=== PATIENT | male | born 1945 | race Caucasian/White ===

== ENCOUNTER 2017-04-15 09:03 | Emergency (ER) | payer OTHER, BC ==
[~2017-04-15] VITALS: Ht 180.3 cm; Wt 97.5 kg
[~2017-04-15 09:03] MED LIST: GLC500 PO; GLC850 PO; LISI-461 PO; LPT10 PO
[2017-04-15 09:12] VITALS: TEMP 37; Ht 180.3 cm; Wt 97.5 kg
[2017-04-15] MEDS ORDERED: SODIUM CHLORIDE 0.9% 1000ML 1,000 ML IV STA (09:15)
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
[2017-04-15 09:57] LABS: CALCIUM 8.4 mg/dl (8.5-10.1)
[2017-04-15 09:58] LABS: ALT/SGPT 20 U/L (12-78); AST/SGOT 9 U/L (15-37); BLOOD UREA NITROGEN 13 mg/dl (7-18); BUN/CREATININE RATIO 11.7 (10-20); CARBON DIOXIDE 22 mmol/L (21-32); CHLORIDE 108 mmol/L (98-107); GLUCOSE 190 mg/dl (70-99); SODIUM 141 mmol/L (136-145)
[2017-04-15 10:08] LABS: ALKALINE PHOSPHATASE 70 U/L (45-117); HEMATOCRIT 46.4 % (42-52); MEAN CELL VOLUME 92.6 fL (80-100); MEAN CORPUSCULAR HEMOGLOBIN 31.3 pg (25-34); MEAN CORPUSCULAR HGB CONC 33.8 g/dl (32-36); MEAN PLATELET VOLUME 10.2 fL (7.4-10.4); PLATELET COUNT 222 K/uL (130-400); RED BLOOD COUNT 5.01 M/uL (4.7-6.1); WHITE BLOOD COUNT 6.92 K/uL (4.8-10.8)
--- NOTE | 2017-04-15 10:08 | DIAGNOSTIC IMAGING REPORT ---
CHEST ONE VIEW PORTABLE CLINICAL HISTORY: Atypical chest pain COMPARISON STUDY: 04/01/2015 FINDINGS: The cardiac and mediastinal contours are normal. There is no evidence of focal pulmonary consolidation. There is no evidence of failure. No pleural effusions are visualized.[ IMPRESSION: No active disease in the chest. Electronically signed by: Stephen Bryson M.D. 04/15/2017 10:06 AM Dictated Date/Time: 04/15/2017 10:06 AM
[2017-04-15 10:13] LABS: BASO % 0.3 %; BASO ABS # 0.02 K/uL (0-0.2); COMPLETE YES; EOS % 1.9 %; IG% 0.4 %; LYMPH % 21.5 %; LYMPH ABS # 1.49 K/uL (1.2-3.4); MONO % 8.7 %; NEUT % 67.2 %
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
[2017-04-15 11:40] VITALS: BP 126/81; PULSE 82; O2SAT 96
== END 2017-04-15 11:40 | disposition home or self-care (01) ==
LOC: EDBD 09:03 → C.EDA 09:04
DX: S06.0X9A Concussion with loss of consciousness of unspecified duration, initial encounter (principal); V43.92XA Unspecified car occupant injured in collision with other type car in traffic accident, initial encounter; R42 Dizziness and giddiness; E11.9 Type 2 diabetes mellitus without complications; Z87.828 Personal history of other (healed) physical injury and trauma; Z79.899 Other long term (current) drug therapy; Z88.0 Allergy status to penicillin; Z91.041 Radiographic dye allergy status; Z91.09 Other allergy status, other than to drugs and biological substances; Z83.3 Family history of diabetes mellitus

== ENCOUNTER 2019-06-23 20:19 | Inpatient (IN) ==
--- OUTSIDE RECORDS SUMMARY | 2019-06-23 20:22 | External Medical Summary | Continuity of Care Document ---
:1945 Author Name Dawson Colon Address Unavailable Unavailable , Care Team Providers Name Role Phone Unavailable Unavailable Unavailable JOSUE, R Unavailable Unavailable Unavailable Unavailable Unavailable Problems Diabetes (250.00) (E11.9) Hypertension (401.9) (I10) Cough (786.2) (R05) COPD (chronic obstructive pulmonary disease) (496) (J44.9) Mucopurulent chronic bronchitis (491.1) (J41.1) Chronic sinusitis (473.9) (J32.9) Allergies and Adverse Reactions Iodinated Contrast Media (Allergy) Penicillins (Allergy) Medications metFORMIN HCl - 1000 MG Oral Tablet; TAKE 1 TABLET DAILY WIT H Darlene NESBITT Refills: 0 Procedures History of Knee Arthroscopy With Medial Meniscus Repair Status: Completed Immunizations Immunizations not documented Family History Mother Family history of Radiation Status: Active Social History - Smoking Status Former smoker Plan of Treatment Planned Observations Planned Goals not documented Results No Known Results Results not documented
[2019-06-23] MEDS ORDERED: ALBUTEROL 0.083% NEBU SOLN 3 ML VIAL NEB STA (20:53)
[2019-06-23 21:16] LABS: Hematocrit (blood only) 43.2 % (42-52); Hemoglobin 14.8 g/dL (14.0-18.0); Mean Corpuscular Hgb Conc 34.3 g/dL (32-36); Mean Corpuscular Volume 92.1 fL (80-100); RDW Coefficient of Variation 13.6 % (11.5-14.5); RDW Standard Deviation 45.7 fL (36.4-46.3); Red Blood Count 4.69 M/uL (4.7-6.1); White Blood Count 7.96 K/uL (4.8-10.8)
[2019-06-23] MEDS ORDERED: SODIUM CHLORIDE 0.9% 1000ML 500 ML IV ONE (21:37)
[2019-06-23] MEDS ORDERED: HYDROmorphone INJ 0.5 MG/0.5 ML SYR IV PRN (21:37)
[2019-06-23] MEDS ORDERED: ONDANSETRON INJ 2 MG/ML 2 ML VIAL IV STA (21:37)
[2019-06-23] MEDS ORDERED: KETOROLAC TROMETHAMINE 15 MG/ML VIAL IV STA (21:37)
[2019-06-23 21:46] LABS: Alanine Aminotransferase 17 U/L (12-78); Albumin Globulin Ratio 0.9 (0.9-2); Albumin Level 3.6 gm/dl (3.4-5.0); Alkaline Phosphatase 102 U/L (45-117); Aspartate Aminotransferase 19 U/L (15-37); BUN Creatinine Ratio 8.2 (10-20); Bilirubin,Total 0.2 mg/dl (0.2-1); Blood Urea Nitrogen 11 mg/dl (7-18); Calcium 8.5 mg/dl (8.5-10.1); Carbon Dioxide 24 mmol/L (21-32); Chloride 109 mmol/L (98-107); Creatine Kinase 125 U/L (39-308); Creatine Kinase MB 1.4 ng/ml (0.5-3.6); Creatinine Clr Calc Pharmacy 51.6 ml/min; Est GFR (African American) 57.7; Est GFR (Non-African American) 49.7; Globulin 3.8 gm/dl (2.5-4.0); Glucose 152 mg/dl (70-99); Sodium 141 mmol/L (136-145); Total Protein 7.4 gm/dl (6.4-8.2); Troponin I < 0.015 ng/ml (0-0.045)
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
[2019-06-23 22:25] LABS: Mean Platelet Volume 12.4 fL (7.4-10.4)
[2019-06-23 22:27] LABS: Basophils # (auto) 0.02 K/uL (0-0.2); Basophils % (auto) 0.3 %; Eosinophils # (auto) 0.14 K/uL (0-0.5); Eosinophils % (auto) 1.8 %; Immature Granulocytes # (auto) 0.03 K/uL (0.00-0.02); Immature Granulocytes % (auto) 0.4 %; Lymphocytes # (auto) 2.15 K/uL (1.2-3.4); Monocytes # (auto) 0.82 K/uL (0.11-0.59); Monocytes % (auto) 10.3 %; Neutrophils % (auto) 60.2 %; Platelet Estimate Decreased (Normal)
[2019-06-23 23:04] LABS: Free PSA % 20.2 %
[2019-06-24] MEDS ORDERED: HYDROmorphone INJ 0.5 MG/0.5 ML SYR IV PRN (01:45)
[2019-06-24] MEDS ORDERED: ONDANSETRON INJ 2 MG/ML 2 ML VIAL IV PRN (01:45)
[2019-06-24] MEDS ORDERED: ACETAMINOPHEN 325 MG TAB PO PRN (01:45)
[2019-06-24] MEDS ORDERED: HYDROCORTISONE 2.5% CR 30 GM TUBE EXT PRN (01:45)
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
[2019-06-24] MEDS ORDERED: GLUCOSE 40% GEL 15 GM TUBE PO PRN (03:00)
[2019-06-24] MEDS ORDERED: GLUCOSE 10 TABS/TUBE PO PRN (03:00)
[2019-06-24] MEDS ORDERED: DEXTROSE 50% 50 ML SYRINGE IV PRN (03:00)
[2019-06-24] MEDS ORDERED: CARBOHYDRATES FOR HYPOGLYCEMIA PO PRN (03:00)
[2019-06-24] MEDS ORDERED: GLUCAGON FOR INJ 1 MG VIAL IM PRN (03:00)
--- NOTE | 2019-06-24 03:04 | Emergency Department Note ---
Entered by Brittany Montague acting as a scribe for History of Present Illness General Chief complaint: Chest Pain Stated complaint: CHEST PAIN Time Seen by Provider: 06/23/19 20:34 Source: patient Mode of arrival: ambulatory Limitations: no limitations History of Present Illness Onset (ago): day(s) 10 Location: chest (Left chest) Radiation: back Pain Consistency: + constant Maximum Pain Intensity: 9 Current Pain Intensity: 9 Relieved By: + none Exacerbated By: + other (Laying down, coughing) Associated symptoms: no rash Treatments prior to arrival: none The patient is a 74 year old male who presents to the ED with complaints of chest pain for the past 10 days. He rates his pain as a 9/10 in severity. He states the pain radiates from his left chest to his mid back. Laying down and coughing worsen his pain. He states he has also experienced numbness in his chest. He notes he has never experienced similar symptoms in the past. He denies any recent rashes. He denies any injuries or trauma to the area. The patient did smoke several years ago, but states he quit approximately 20 years ago. He admits he does a lot of hiking outdoors but states he never experienced the pain with exertion before. He denies noticing any recent tick bites. Home Medications Home Medications Medication Instructions Recorded Confirmed Type aspirin [Aspir-Low] 81 mg PO DAILY 06/23/19 06/23/19 History baclofen 10 mg PO TID 06/23/19 06/23/19 History duloxetine [Cymbalta] 30 mg PO DAILY 06/23/19 06/23/19 History empagliflozin [Jardiance] 10 mg PO DAILY 06/23/19 06/23/19 History glucosamine-chondroitin 1 tab PO BID 06/23/19 06/23/19 History hydrocortisone 1 applic TOPICAL BID PRN 06/23/19 06/23/19 History metformin [Glucophage XR] 500 mg PO TID 06/23/19 06/23/19 History pantoprazole [Protonix] 40 mg PO DAILY 06/23/19 06/23/19 History pioglitazone [Actos] 15 mg PO DAILY 06/23/19 06/23/19 History ranitidine HCl [Zantac] 300 mg PO HS 06/23/19 06/23/19 History rosuvastatin [Crestor] 20 mg PO DAILY 06/23/19 06/23/19 History Allergies Allergy/AdvReac Type Severity Reaction Status Date / Time cat dander Allergy Intermediate ITCHING , Unverified 06/23/19 22:53 SNEEZING Iodinated Contrast- Oral and Allergy Unknown Unknown Verified 06/23/19 22:53 IV Dye Penicillins Allergy Unknown Unknown Verified 06/23/19 22:53 Past Med/Surg History Medical History DVT (deep venous thrombosis) Bipolar depression Diabetes Social History Preferred Language: Chadian Communication Ability: Effective Medical Physiologist Required: No Beliefs That Will Affect Care: None Current Living Situation: Alone Other Information That Helps Us Care for You: No Feels Safe at Home: Yes Smoking Status: Former smoker Do You Dip or Chew Tobacco: No ; Second Hand Exposure: No ; Tobacco Cessation Education Requested by Patient: No Hx Substance Use: No Review of Systems See HPI for pertinent positives & negatives. and A total of 10 systems reviewed and were otherwise negative Physical Exam Vital Signs Vital Signs - 24 hr 06/23/19 20:25 06/23/19 20:37 06/23/19 20:38 Temperature 36.9 C Temperature Source Oral Sepsis Recent Fever Within 48 Hours No Sepsis New/Unexplained Change in Mental Status No Sepsis Action Taken by Nursing No Action Required Pulse Rate 99 H 93 H Pulse Rate [Bilateral Apical] 88 Pulse Rate [Right Finger] Pulse Rhythm Regular Respiratory Rate 20 20 20 Respiratory Effort / Characteristics Non-Labored Respiratory Depth Normal Blood Pressure 160/82 H Blood Pressure [Left Arm] 124/88 Blood Pressure Mean 108 Blood Pressure Mean [Left Arm] 100 Pulse Oximetry 97 98 98 Oxygen Delivery Method Room Air Room Air Room Air 06/23/19 21:01 06/23/19 21:10 06/23/19 21:27 Temperature Temperature Source Sepsis Recent Fever Within 48 Hours Sepsis New/Unexplained Change in Mental Status Sepsis Action Taken by Nursing Pulse Rate Pulse Rate [Bilateral Apical] 90 Pulse Rate [Right Finger] 93 H Pulse Rhythm Respiratory Rate 18 18 Respiratory Effort / Characteristics Non-Labored Spontaneous Respiratory Depth Blood Pressure Blood Pressure [Left Arm] 149/94 H Blood Pressure Mean Blood Pressure Mean [Left Arm] 112 Pulse Oximetry 98 98 94 Oxygen Delivery Method Room Air Room Air Room Air 06/23/19 21:49 06/23/19 22:03 06/23/19 23:00 Temperature Temperature Source Sepsis Recent Fever Within 48 Hours Sepsis New/Unexplained Change in Mental Status Sepsis Action Taken by Nursing Pulse Rate Pulse Rate [Bilateral Apical] 93 H 88 94 H Pulse Rate [Right Finger] Pulse Rhythm Respiratory Rate 20 18 20 Respiratory Effort / Characteristics Respiratory Depth Blood Pressure Blood Pressure [Left Arm] 144/92 H 145/85 H 116/78 Blood Pressure Mean Blood Pressure Mean [Left Arm] 109 105 90 Pulse Oximetry 95 96 93 Oxygen Delivery Method Room Air Room Air Room Air 06/24/19 00:00 Temperature Temperature Source Sepsis Recent Fever Within 48 Hours Sepsis New/Unexplained Change in Mental Status Sepsis Action Taken by Nursing Pulse Rate Pulse Rate [Bilateral Apical] 78 Pulse Rate [Right Finger] Pulse Rhythm Respiratory Rate 20 Respiratory Effort / Characteristics Respiratory Depth Blood Pressure Blood Pressure [Left Arm] 125/90 Blood Pressure Mean Blood Pressure Mean [Left Arm] 101 Pulse Oximetry 94 Oxygen Delivery Method Room Air GENERAL: Awake, alert, well-appearing, in no acute distress HENT: Normocephalic, atraumatic. Oropharynx unremarkable. EYES: Normal conjunctiva. Sclera non-icteric. NECK: Supple. No nuchal rigidity. FROM. No JVD. RESPIRATORY: Clear to auscultation. CARDIAC: Regular rate, normal rhythm. Extremities warm and well perfused. Pulses equal. CHEST: Patient is point tender to the left 5th rib, area inferior to the scapula. ABDOMEN: Soft, non-distended. No tenderness to palpation. No rebound or guarding. No masses. RECTAL: Deferred. MUSCULOSKELETAL: Chest examination reveals no tenderness. The back is symmetrical on inspection without obvious abnormality. There is no CVA tenderness to palpation. No joint edema. LOWER EXTREMITIES: Calves are equal size bilaterally and non-tender. No edema. No discoloration. NEURO: Normal sensorium. No sensory or motor deficits noted. SKIN: No rash or jaundice noted. Course 2038: The patient was evaluated in room A9 and a complete history and physical were performed. 2234: I reevaluated the patient. He is resting comfortably. I discussed his results and my recommendation he remain in the hospital for further evaluation and management and he verbalized complete understanding and agreement with the plan. He is also requesting that I call his son who is a chiropractor. 2244: I spoke with the patients son. I informed him of the patients work up results and the plan to remain in the hospital. He is agreeable with the plan. 2310: I discussed the patients case [facility]. The patient will be further evaluated. Consultations Consultation #1: I discussed the patients case with [facility]. The patient will be further evaluated. Time: 23:10 Administered Medications Discontinued Medications Albuterol (Ventolin 0.083% 2.5mg/3ml) 2.5 mg NEB NOW STA Stop: 06/23/19 20:54 Last Admin: 06/23/19 21:08 Dose: 2.5 mg Documented by: [id number] Hydromorphone HCl (Dilaudid) 0.5 mg IV Q15M PRN PRN Reason: Pain Stop: 07/07/19 21:36 Last Admin: 06/23/19 21:44 Dose: 0.5 mg Documented by: [id number] Sodium Chloride (Nss 1000ml) 500 mls @ 999 mls/hr IV .Q31M ONE Stop: 06/23/19 22:07 Last Infusion: 06/23/19 22:11 Dose: 0 mls/hr Documented by: [id number] Admin: 06/23/19 21:43 Dose: 999 mls/hr Documented by: [id number] Ketorolac Tromethamine (Toradol) 15 mg IV NOW STA Stop: 06/23/19 21:38 Last Admin: 06/23/19 21:44 Dose: 15 mg Documented by: [id number] Ondansetron HCl (Zofran) 4 mg IV NOW STA Stop: 06/23/19 21:38 Last Admin: 06/23/19 21:44 Dose: 4 mg Documented by: [id number] Medical Decision Making Differential Diagnosis Differential diagnoses includes but is not limited to acute coronary syndrome, myocardial infarction, pericarditis, pulmonary embolus, aortic dissection, pneumonia, pneumothorax, musculoskeletal, shingles, esophageal. Medical Records Attestation: I reviewed the patient's medical records. Home Medications Current Medication List: was personally reviewed by me Laboratory Data Attestation: I reviewed the patient's lab results. Result diagrams: 06/23/19 20:40 06/23/19 20:40 Lab Results 06/23/19 06/23/19 06/23/19 Range/Units 20:40 20:40 20:40 WBC 7.96 (4.8-10.8) K/uL RBC 4.69 L (4.7-6.1) M/uL Hgb 14.8 (14.0-18.0) g/dL Hct 43.2 (42-52) % MCV 92.1 (80-100) fL MCH 31.6 (25-34) pg MCHC 34.3 (32-36) g/dL RDW Std Deviation 45.7 (36.4-46.3) fL RDW Coeff of Brooke 13.6 (11.5-14.5) % Plt Count (130-400) K/uL MPV 12.4 H (7.4-10.4) fL Immature Gran % (Auto) 0.4 % Neut % (Auto) 60.2 % Lymph % (Auto) 27.0 % [place] % (Auto) 10.3 % Eos % (Auto) 1.8 % Baso % (Auto) 0.3 % Immature Gran # (Auto) 0.03 H (0.00-0.02) K/uL Neut # (Auto) 4.80 (1.4-6.5) K/uL Lymph # (Auto) 2.15 (1.2-3.4) K/uL [place] # (Auto) 0.82 H (0.11-0.59) K/uL Eos # (Auto) 0.14 (0-0.5) K/uL Baso # (Auto) 0.02 (0-0.2) K/uL Platelet Estimate Decreased L (Normal) Sodium 141 (136-145) mmol/L Potassium 4.0 (3.5-5.1) mmol/L Chloride 109 H (98-107) mmol/L Carbon Dioxide 24 (21-32) mmol/L Anion Gap 8.0 (3-11) BUN 11 (7-18) mg/dl Creatinine 1.37 (0.6-1.4) mg/dl Est Cr Clr Drug Dosing 51.6 ml/min Est GFR ( Amer) 57.7 Est GFR (Non-Af Amer) 49.7 BUN/Creatinine Ratio 8.2 L (10-20) Glucose 152 H (70-99) mg/dl Calcium 8.5 (8.5-10.1) mg/dl Total Bilirubin 0.2 (0.2-1) mg/dl AST 19 (15-37) U/L ALT 17 (12-78) U/L Alkaline Phosphatase 102 (45-117) U/L Total Creatine Kinase 125 (39-308) U/L CK-MB (CK-2) 1.4 (0.5-3.6) ng/ml CK/CKMB % Calc 1.1 (0-3.0) Troponin I < 0.015 (0-0.045) ng/ml Total Protein 7.4 (6.4-8.2) gm/dl Albumin 3.6 (3.4-5.0) gm/dl Globulin 3.8 (2.5-4.0) gm/dl Albumin/Globulin Ratio 0.9 (0.9-2) Lipase 153 (73-393) U/L Prostate Specific Ag 31.900 H Cancelled (0-4) ng/ml Free PSA 6.45 Cancelled ng/ml % Free PSA 20.2 Cancelled % Specimen Hemolysis Imaging Data Radiologist's Impression: Radiology results as stated below per my review and the radiologist's interpretation: CT SCAN OF THE CHEST WITHOUT IV CONTRAST; CT SCAN OF THE THORACIC SPINE WITHOUT IV CONTRAST CLINICAL HISTORY: Left-sided chest wall pain. Thoracic back pain. COMPARISON STUDY: Chest x-ray dated 04/15/2017. Chest CT dated 03/29/2015. TECHNIQUE: CT scan of the thorax was performed from the thoracic inlet to the upper abdomen. Additionally, CT scan of the thoracic spine is performed from the lower cervical spine to the upper lumbar spine. Images for both examinations are reviewed in the axial, sagittal, and coronal planes. IV contrast was not administered for this examination as per the referring clinician. A dose lowering technique was utilized adhering to the principles of ALARA. CT DOSE: 603.57 mGy.cm FINDINGS: Thyroid: Imaged portions of the thyroid gland are mildly enlarged and heterogeneous in attenuation. Thoracic aorta: The thoracic aorta is normal in caliber and demonstrates standard 3-vessel arch anatomy. Heart: The heart is mildly enlarged and without pericardial effusion. There is lipomatous hypertrophy of the interatrial septum. There are coronary artery calcifications. Lungs and pleural spaces: Emphysematous change is noted. There is no airspace consolidation or pleural effusion. The trachea and central airways are clear. There are numerous (greater than 10) pulmonary and pleural-based nodules scattered throughout both lungs. The largest at the left lung base on image #23 and measures 8 mm. These are nonspecific, and image arteries are present in 2015. Mediastinum: There is no mediastinal lymphadenopathy. Kimberly: Not well assessed without IV contrast. Axillae: There is no axillary lymphadenopathy. Upper abdomen: There is a tiny hiatal hernia. Diverticula are noted in the partially imaged colon. Bony thorax: See below for dedicated assessment of the thoracic spine. The skeletal structures are osteopenic. 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 Large lesions are identified in the thoracic spine (see below). A large lesion is also identified within the left lateral 3rd rib with mild surrounding inflammation. Smaller lesions are seen within the left 5th and 6th ribs, the right 6th, 9th, and 10th ribs, the left clavicle, and the left scapula. THORACIC SPINE: There is a large sclerotic lesion which largely replaces the body of T2. This also involves the pedicles and posterior elements. Smaller lesion is seen within the bodies of T1, as well as the body and right pedicle of L1. There is no evidence of fracture or malalignment. Vertebral body height and alignment are maintained throughout the thoracic spine. Anterior osteophytes are seen throughout. The transverse and spinous processes are intact. The disc spaces are preserved. There is no evidence of large disc herniation or high- grade central canal stenosis by CT. The paraspinous soft tissues are normal in appearance. IMPRESSION: 1. Cardiomegaly and emphysema. 2. There is no airspace consolidation or pleural effusion. 3. There is no evidence of fracture or malalignment involving the thoracic spine. 4. 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 Given the patient's age and gender prostate cancer is a top consideration. Correlation with the patient's medical/oncological history will be required. 5. A large lesion involving the left 3rd rib with surrounding inflammation may be related to the patient's history of left-sided chest wall pain. 6. A large osteoblastic lesion largely replaces the T2 vertebral body. 7. There are numerous (greater than 10) subcentimeter pulmonary pleural-based nodules. These are pathologically indeterminant, and the majority have been p resent dating back to 2014. 8. See above for detailed findings. Electronically signed by: Don Riley M.D. 06/23/2019 10:22 PM ECG Data Attestation: I personally reviewed and interpreted this ECG as follows: Indication: chest pain Rate (beats per minute): 91 Rhythm: normal sinus Findings: no ST depression and no ST elevation Blood Pressure Blood Pressure Findings: Elevated blood pressure Blood Pressure Disposition: further management by hospitalist ASMITA Aragon This is a 74-year-old male who presents emergency department complaining of referred pain that wraps around to his left arm from his spine. Based on this physical exam finding the patient was sent for CAT scan of the spine as well as his chest. This is concerning for lytic lesions to the patient's spine and his rib. The patient was also given Dilaudid here in the emergency department. Repeat examination revealed improvement in the patient's symptoms. Due to the nature of the finding on the CAT scan I did discuss the case with the hospitalist service who agreed to admit the patient. This patient's son was also updated with findings and is in agreement with the treatment plan. Impression & Plan Chest pain, Fracture of rib, Lesion of vertebra Discharge Plan Visit Data *Final* Discharge Date/Time: 06/24/19 01:33 Chief Complaint: Chest Pain Stated Complaint: CHEST PAIN ED Provider: Alban Dave Discharge Problem: Chest pain, Fracture of rib, Lesion of vertebra Patient Disposition: Admitted As Inpatient Discharge Instructions Interventions: ED Discharge Assessment Last Done: 06/24/19 01:33 Discharge Problem: Chest pain Qualifiers: Chest pain type: unspecified Qualified Code(s): R07.9 - Chest pain, unspecified Fracture of rib Qualifiers: Encounter type: initial encounter Rib fracture type: single rib Fracture type: closed Laterality: left Qualified Code(s): S22.32XA - Fracture of one rib, left side, initial encounter for closed fracture The scribe's documentation has been prepared under my direction and personally reviewed by me in its entirety. I confirm that the note above accurately reflects all work, treatment, procedures, and medical decision making performed by me.
[2019-06-24 03:56] LABS: iSTAT Creatinine 1.2 mg/dl (0.6-1.3); iSTAT Hemoglobin 14.6 g/dl (14.0-18.0); iSTAT Ionized Calcium 1.18 mmol/l (1.12-1.32)
--- NOTE | 2019-06-24 06:57 | CT Scan Report ---
CT head/brain wo con CLINICAL HISTORY: Metastatic disease. Evaluate for intracranial metastasis. COMPARISON STUDY: 04/15/2017 TECHNIQUE: Axial CT of the brain is performed from the vertex to the skull base. IV contrast was not administered for this examination. A dose lowering technique was utilized adhering to the principles of ALARA. CT DOSE: 651.12 mGy.cm FINDINGS: No intra or extra-axial mass lesions are visualized. There is no CT evidence of acute cortical infarc tion. There is no evidence of midline shift. There is no acute hemorrhage. No calvarial fractures ar e visualized. There are patchy white matter hypodensities likely on a small vessel basis. There is no evidence of pathologic ventricular dilatation. There is no evidence of acute sinusitis IMPRESSION: No acute intracranial findings Electronically signed by: Stephen Bryson M.D. 06/24/2019 6:56 AM
--- NOTE | 2019-06-24 06:58 | CT Scan Report ---
CT abd pelvis wo con CT DOSE: 657.82 mGy.cm HISTORY: Metastatic disease. metastatic disease TECHNIQUE: Multiaxial CT images of the abdomen and pelvis were performed without contrast. A dose lo wering technique was utilized adhering to the principles of ALARA. COMPARISON STUDY: None. FINDINGS: Lung bases are clear. 4 mm pleural-based nodule left base laterally image 11. Liver spleen and pancreas are unremarkable. Kidneys are negative for hydronephrosis. No significant periaortic or josse pathology. Nonobstructive bowel pattern. Scattered chronic colonic diverticuli. No evidence for acute diverticulitis. Small right and to a lesser extent left fat-containing nonobstructive inguinal hernias. No evidence for bowel containment. Survey evaluation of the bony structures shows no lytic or blastic process. Incidental note is made of moderate prostate enlargement IMPRESSION: No significant abnormality identified within the abdomen or pelvis. Moderate prostate enlargement. No evidence for metastatic disease. The above report was generated using voice recognition software. It may contain grammatical, syntax or spelling errors. Electronically signed by: Freddy Bosch M.D. 06/24/2019 6:56 AM
[2019-06-24 07:23] LABS: Basophils # (auto) 0.02 K/uL (0-0.2); Basophils % (auto) 0.3 %; Eosinophils # (auto) 0.12 K/uL (0-0.5); Hematocrit (blood only) 41.2 % (42-52); Hemoglobin 13.6 g/dL (14.0-18.0); Immature Granulocytes # (auto) 0.02 K/uL (0.00-0.02); Immature Granulocytes % (auto) 0.3 %; Lymphocytes # (auto) 1.76 K/uL (1.2-3.4); Lymphocytes % (auto) 29.3 %; Mean Corpuscular Volume 92.6 fL (80-100); Mean Platelet Volume 11.5 fL (7.4-10.4); Monocytes # (auto) 0.53 K/uL (0.11-0.59); Monocytes % (auto) 8.8 %; Neutrophils # (auto) 3.55 K/uL (1.4-6.5); Neutrophils % (auto) 59.3 %; Platelet Count 119 K/uL (130-400); RDW Coefficient of Variation 13.6 % (11.5-14.5); RDW Standard Deviation 46.4 fL (36.4-46.3); Red Blood Count 4.45 M/uL (4.7-6.1)
[2019-06-24 07:41] LABS: Estimated Average Glucose 171 mg/dl; Hemoglobin A1C 7.6 % (4.5-5.6)
[2019-06-24 07:58] LABS: BUN Creatinine Ratio 9.1 (10-20); Calcium 8.3 mg/dl (8.5-10.1); Creatinine Clr Calc Pharmacy 62.3 ml/min; Est GFR (Non-African American) 62.1; Magnesium 2.3 mg/dl (1.8-2.4)
[2019-06-24 08:03] LABS: Prostate Specific Antigen 28.4 ng/ml (0-4)
[2019-06-24] MEDS ORDERED: INSULIN GLARGINE SOLOSTAR 100 UNITS/ML 3 ML PEN SC SCH (09:00)
[2019-06-24] MEDS ORDERED: NON-FORMULARY MEDICATION (Glucosamine-Chondroitin 1 TAB) PO SCH (09:00)
[2019-06-24] MEDS: PANTOprazole 40 MG TAB PO SCH (09:08)
[2019-06-24] MEDS: ROSUVASTATIN CALCIUM 20 MG TAB PO SCH (09:08)
[2019-06-24] MEDS: ASPIRIN 81 MG ECTAB PO SCH (09:08)
[2019-06-24] MEDS: DULOXETINE HCL 30 MG CAP PO SCH (09:09)
[2019-06-24] MEDS: BACLOFEN 10 MG TAB PO SCH ×3 (09:11→21:45)
[2019-06-24] MEDS: OXYCODONE/ACETAMINOPHEN 5mg/325mg TAB PO PRN ×4 (09:26→23:37)
[2019-06-24] MEDS: INSULIN ASPART 100 UNITS/ML 3 ML PEN SC SCH ×4 (10:26→22:24)
--- NOTE | 2019-06-24 12:32 | Urology Consultation ---
Date of Consultation June 24, 2019 Assessment & Plan (1) Elevated PSA, greater than or equal to 20 ng/ml: (2) Lesion of vertebra: 74yo M with elevated PSA, with concern for metastatic osteoblastic lesions of vertebrae Pt unable to tolerate KAMALJIT due to internal hemorrhoids and increased rectal tone. Pt is otherwise doing well, symptoms managed at this time. Discussed androgen deprivation therapy, he would like to hold off for now. We will consult medical oncology to assist in management. Plan for prostate biopsy under sedation tomorrow with Dr. Hill due to his intolerability of KAMALJIT. Risks and benefits reviewed, pt agreeable to proceed. Start antibiotics preprocedure now (cipro ~24 hours prior to procedure, q12h prior to procedure x5 days total) Plan for bowel cleanse tonight with mag citrate then fleets enema in AM. NPO at midnight. History of Present Illness Reason for Consultation: elevated PSA Requesting Physician: Dr. Moore Attending Physician: Macario Moore MD History of Present Illness 74yo M with DMII, HTN, GERD, arthritis, factor V liden, psoriasis, anxiety, bipolar and COPD presents to [facility] with severe thoracic spine pain, ongoing for 10 days. Pain became to the point he could not stand it anymore. Ex- at bedside with him, they appear to have a very close relationship. Thoracic spine CT a large osteoblastic lesion largely replaces the T2 vertebrae, consistent with multifocal osteoblastic metastatic disease. Abd/pelvic CT reveals enlarged prostate, no renal lesions, stones or hydronephrosis. PSA elevated to 28 on admission. Pt denies any major LUTS, hematuria. Denies ever previously having KAMALJIT, unsure of previous PSA values. Per notes, father of prostate cancer. Per patient he is unsure, he states "I remember the doctor telling me there was 10 things wrong with him when he ." He is currently comfortable, sitting up in chair. States this is the best he has felt in a long time. Allergies Allergy/AdvReac Type Severity Reaction Status Date / Time cat dander Allergy Intermediate ITCHING , Unverified 06/23/19 22:53 SNEEZING Iodinated Contrast- Oral and Allergy Unknown Unknown Verified 06/23/19 22:53 IV Dye Penicillins Allergy Unknown Unknown Verified 06/23/19 22:53 Home Medications Home Medications Medication Instructions Recorded Confirmed Type aspirin [Aspir-Low] 81 mg PO DAILY 06/23/19 06/23/19 History baclofen 10 mg PO TID 06/23/19 06/23/19 History duloxetine [Cymbalta] 30 mg PO DAILY 06/23/19 06/23/19 History empagliflozin [Jardiance] 10 mg PO DAILY 06/23/19 06/23/19 History glucosamine-chondroitin 1 tab PO BID 06/23/19 06/23/19 History hydrocortisone 1 applic TOPICAL BID PRN 06/23/19 06/23/19 History metformin [Glucophage XR] 500 mg PO TID 06/23/19 06/23/19 History pantoprazole [Protonix] 40 mg PO DAILY 06/23/19 06/23/19 History pioglitazone [Actos] 15 mg PO DAILY 06/23/19 06/23/19 History ranitidine HCl [Zantac] 300 mg PO HS 06/23/19 06/23/19 History rosuvastatin [Crestor] 20 mg PO DAILY 06/23/19 06/23/19 History Patient History Medical History DVT (deep venous thrombosis) Bipolar depression Diabetes Social History Preferred Language: Latvian Communication Ability: Effective Plate Sensitizer Required: No Beliefs That Will Affect Care: None Current Living Situation: Alone Other Information That Helps Us Care for You: No Feels Safe at Home: Yes Smoking Status: Former smoker Do You Dip or Chew Tobacco: No ; Second Hand Exposure: No ; Tobacco Cessation Education Requested by Patient: No Hx Substance Use: No Review of Systems Review of Systems: Constitutional: Denies fever, chills, sweats, malaise Eyes: Denies problem reported ENMT: Denies dizziness Resp: Denies cough, Denies shortness of breath CV: Denies JVD GI: Denies nausea/vomiting : Denies suprapubic or flank pain, dysuria, urgency, frequency, hematuria MS: Denies swelling, stiffness Integ: Denies rash, erythema Neuro: Denies falls, weakness Psych: Denies behavior change Endo: Denies polyphagia, polydipsia Heme: Denies easy bleeding Physical Exam Constitutional: no acute distress and not ill appearing Eyes: no nystagmus ENMT: Ears: no hearing impairment Neck: trachea midline Respiratory: no respiratory distress and no cough Cardiovascular: Vessels: no JVD Chest (Breasts): Chest: normal inspection of chest Gastrointestinal (Abdomen): Inspection/Auscultation: abdomen not distended and no abdominal edema Percussion/Palpation: abdomen soft; abdomen nontender Rectal Exam: + abnormal sphincter tone (tight) and + hemorrhoids limited KAMALJIT exam due to internal hemorrhoids, pain and increased sphincter tone. Musculoskeletal: Head/Neck/Chest: normocephalic and head atraumatic Skin: no rashes, warm and dry Neurologic: awake; not confused and not obtunded Psychiatric: Orientation: alert and oriented x 3 Eye Contact: good eye contact Affect: no depressed affect Genitourinary: bladder normal to inspection; no CVA tenderness Lymphatic: no lymphadenopathy and no lymphedema Results & Data Vital Signs (Past 12 Hours) Vital Signs Temp Pulse Pulse Resp BP Pulse Ox 06/24/19 07:27 36.5 C 78 16 98/60 L 93 06/24/19 01:46 36.5 C 76 119/79 91 06/24/19 01:33 77 20 115/78 93 06/24/19 00:45 84 20 122/66 93
[2019-06-24] MEDS: CIPROFLOXACIN 500 MG TAB PO SCH ×2 (14:18→21:44)
--- NOTE | 2019-06-24 18:16 | Hospitalist Progress Note ---
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 Given the patient's age and gender, prostate cancer is top consideration. A large lesion involving the 3rd rib with surrounding inflammation related to the patient's history of left-sided chest wall pain. Large osteoblastic lesion T2 vertebral body. There are numerous subcentimeter pulmonary pleural based nodules. pathology is indeterminate and a majority had been present dating back to 2014. -discussed with [facility] affiliated oncologist Dr. 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 History of depression, bipolar, anxiety -Continue Cymbalta. Deep venous thrombosis prophylaxis, sequential compression devices. Subjective as per patient, the back and left rib pain is controlled. Patient able to ambulate. no shortness of breath. no vomiting. Physical Exam Constitutional: WD/WN, vitals as above Eyes: PERRL, conjunctivae normal, anicteric sclerae ENMT: external ear and nose normal, oropharynx normal Neck: trachea midline, no thyromegaly Respiratory: normal respiratory effort, lungs clear to auscultation Cardiovascular: RRR, no murmur, no edema Gastrointestinal (Abdomen): normal bowel sounds, soft, nontender, no hepatosplenomegaly Musculoskeletal: Head/Neck/Chest: normocephalic and head atraumatic Neurologic: PERRL, EOMI, accommodation nl, no face palsy, no dysarthria CN's II-XI intact bilaterally Psychiatric: A+Ox3, euthymic affect Results & Data Vital Signs (Past 12 Hours) Vital Signs Temp Pulse Pulse Resp BP Pulse Ox 06/24/19 15:09 36.5 C 76 17 119/73 93 06/24/19 07:27 36.5 C 78 16 98/60 L 93 (1) Fracture of rib Encounter type: initial encounter Fracture type: closed Laterality: left Rib fracture type: single rib Qualified Code(s): S22.32XA - Fracture of one rib, left side, initial encounter for closed fracture
[2019-06-24] MEDS: MAGNESIUM CITRATE 296 ML/BTL PO SCH ×2 (18:36→21:44)
[2019-06-24] MEDS: SODIUM CHLORIDE 0.9% 1000ML 1,000 ML IV SCH (23:38)
[2019-06-25] MEDS: SODIUM CHLORIDE 0.9% 1000ML 1,000 ML IV SCH ×2 (01:15→13:27)
[2019-06-25] MEDS ORDERED: Nursing to Pharmacy Communication ONE ×2 (05:24→20:03)
[2019-06-25] MEDS: INSULIN ASPART 100 UNITS/ML 3 ML PEN SC SCH ×4 (06:34→20:37)
[2019-06-25] MEDS ORDERED: SOD PHOSPHATE/SOD BIPHOSPHATE ENEMA 132 ML BTL PR SCH (07:00)
[2019-06-25] MEDS: ROSUVASTATIN CALCIUM 20 MG TAB PO SCH (08:46)
[2019-06-25] MEDS: CIPROFLOXACIN 500 MG TAB PO SCH (08:46)
[2019-06-25] MEDS: ASPIRIN 81 MG ECTAB PO SCH (08:48)
[2019-06-25] MEDS: BACLOFEN 10 MG TAB PO SCH ×3 (08:50→20:34)
[2019-06-25] MEDS: PANTOprazole 40 MG TAB PO SCH (08:51)
[2019-06-25] MEDS: DULOXETINE HCL 30 MG CAP PO SCH (08:51)
--- NOTE | 2019-06-25 09:14 | Urology Progress Note ---
Date of Service June 25, 2019 Assessment & Plan (1) Elevated PSA, greater than or equal to 20 ng/ml: 74yo M with elevated PSA, concern for malignancy. Continue NPO status. Plan for prostate biopsy under sedation with Dr. Hill today. Will cover preoperatively with IV gentamicin. Pt remains agreeable, all questions answered. ATTENDING NOTE: agree with plan. Plan to have biopsy of prostate with sedation. Subjective 74yo M with elevated PSA, back pain. Concern for malignancy with prostatic origin. Pt was able to get some rest last evening. Pain controlled, currently NPO. IVFs running per order. No BM with mag citrate, however had large production s/p enema this AM. He is resting comfortable in bed this AM, ex- at bedside. No new issues or concerns today. Review of Systems Review of Systems: All systems reviewed & are unremarkable except as noted in HPI & below Physical Exam Constitutional: no acute distress and not ill appearing Eyes: no nystagmus ENMT: Ears: no hearing impairment Neck: trachea midline Respiratory: no respiratory distress and no cough Cardiovascular: Vessels: no JVD Chest (Breasts): Chest: normal inspection of chest Gastrointestinal (Abdomen): Inspection/Auscultation: abdomen not distended and no abdominal edema Percussion/Palpation: abdomen soft; abdomen nontender Musculoskeletal: Head/Neck/Chest: normocephalic and head atraumatic Skin: no rashes, warm and dry Neurologic: awake; not confused and not obtunded Psychiatric: Orientation: alert and oriented x 3 Eye Contact: good eye contact Affect: no depressed affect Genitourinary: bladder normal to inspection Lymphatic: no lymphadenopathy and no lymphedema Results & Data Vital Signs (Past 12 Hours) Vital Signs Temp Pulse Resp BP Pulse Ox 06/25/19 07:19 36.4 C L 72 18 104/67 94 06/24/19 23:26 36.5 C 81 18 99/66 L 92
[2019-06-25] MEDS ORDERED: GENTAMICIN CONSULT ACTIVE PRN (09:47)
[2019-06-25] MEDS ORDERED: GENTAMICIN SULFATE 40 MG/ML 20 ML VIAL IV SCH (10:00)
[2019-06-25] MEDS ORDERED: ePHEDrine sulfate 50 MG/ML AMP IV PRN (13:24)
[2019-06-25] MEDS ORDERED: LABETALOL HCL IV 5 MG/ML 20ML IV PRN (13:24)
[2019-06-25] MEDS ORDERED: fentaNYL citrate 100 MCG/2 ML VIAL IV PRN (13:24)
[2019-06-25] MEDS ORDERED: ONDANSETRON INJ 2 MG/ML 2 ML VIAL IV PRN (13:24)
[2019-06-25] MEDS ORDERED: PHENYLEPHRINE 100MCG/ML 5ML SYR IV PRN (13:24)
[2019-06-25] MEDS ORDERED: ATROPINE SULFATE 0.1 MG/ML 10ML SYR IV PRN (13:24)
--- NOTE | 2019-06-25 13:27 | Anesthesiology Consultation ---
Date of Service June 25, 2019 Assessment & Plan (1) Encounter for pre-operative examination: Chart Review Chart Review: Acceptable Risk for Surgery and Patient NOT seen in Pre Admission Testing Consults Requested none History Surgery Operation Date: 06/25/19 14:30 Proposed Procedures p Prostate Biopsy under Sedation - Klaus Hill II, DO Height/Weight Height: 5 ft 10 in Weight: 90.2 kg Allergies Allergy/AdvReac Type Severity Reaction Status Date / Time cat dander Allergy Intermediate ITCHING , Unverified 06/23/19 22:53 SNEEZING Iodinated Contrast- Oral and Allergy Unknown Unknown Verified 06/23/19 22:53 IV Dye Penicillins Allergy Unknown Unknown Verified 06/23/19 22:53 Medications Home Medications Medication Instructions Recorded Confirmed Last Taken aspirin [Aspir-Low] 81 mg PO DAILY 06/23/19 06/23/19 Unknown baclofen 10 mg PO TID 06/23/19 06/23/19 Unknown duloxetine [Cymbalta] 30 mg PO DAILY 06/23/19 06/23/19 Unknown empagliflozin [Jardiance] 10 mg PO DAILY 06/23/19 06/23/19 Unknown glucosamine-chondroitin 1 tab PO BID 06/23/19 06/23/19 Unknown hydrocortisone 1 applic TOPICAL BID PRN 06/23/19 06/23/19 Unknown metformin [Glucophage XR] 500 mg PO TID 06/23/19 06/23/19 Unknown pantoprazole [Protonix] 40 mg PO DAILY 06/23/19 06/23/19 Unknown pioglitazone [Actos] 15 mg PO DAILY 06/23/19 06/23/19 Unknown ranitidine HCl [Zantac] 300 mg PO HS 06/23/19 06/23/19 Unknown rosuvastatin [Crestor] 20 mg PO DAILY 06/23/19 06/23/19 Unknown Active Medications Generic Name Dose Route Start Last Admin Trade Name Freq PRN Reason Stop Dose Admin Aspirin 81 mg 06/24/19 09:00 06/25/19 08:48 Ecotrin Ectab PO 07/24/19 08:59 Not Given DAILY JORDAN Baclofen 10 mg 06/24/19 09:00 06/25/19 08:50 Lioresal PO 07/24/19 08:59 Not Given TID JORDAN Ciprofloxacin 500 mg 06/24/19 14:00 06/25/19 08:46 Cipro PO 06/25/19 13:59 500 mg BID JORDAN Administration Duloxetine HCl 30 mg 06/24/19 09:00 06/25/19 08:51 Cymbalta PO 07/24/19 08:59 Not Given DAILY JORDAN Hydromorphone HCl 0.5 mg 06/24/19 01:45 06/24/19 05:51 Dilaudid IV 07/08/19 01:44 0.5 mg Q3H PRN Administration Pain Sodium Chloride 1,000 mls @ 80 mls/hr 06/25/19 00:00 06/25/19 01:15 Nss 1000ml IV 07/25/19 00:00 80 mls/hr .[id number] JORDAN Administration Insulin Aspart 0 units 06/25/19 12:00 06/25/19 06:34 Novolog Flexpen SC 07/25/19 11:59 Not Given Q6 JORDAN Ondansetron HCl 4 mg 06/24/19 01:45 06/24/19 20:05 Zofran IV 07/24/19 01:44 4 mg Q6H PRN Administration Nausea Oxycodone/Acetaminophen 1 tab 06/24/19 01:45 06/24/19 23:37 Percocet 5mg/325mg PO 07/08/19 01:44 1 tab Q4H PRN Administration Pain Pantoprazole Sodium 40 mg 06/24/19 09:00 06/25/19 08:51 Protonix PO 07/24/19 08:59 40 mg DAILY JORDAN Administration Ranitidine HCl 300 mg 06/24/19 21:00 06/24/19 21:44 Zantac PO 07/24/19 20:59 300 mg HS JORDAN Administration Rosuvastatin Calcium 20 mg 06/24/19 09:00 06/25/19 08:46 Crestor PO 07/24/19 08:59 20 mg DAILY JORDAN Administration NPO Date Last Intake of Fluids: 06/24/19 Time Last Intake of Fluids: 23:00 Last Intake of Fluids Comment: Pt had sip's with meds this morning Date Last Intake of Solids: 06/24/19 Time Last Intake of Solids: 18:30 Last Intake of Solids Comment: No solids since midnight Past Medical History Medical History DVT (deep venous thrombosis) Bipolar depression Diabetes Social History Smoking Status: Former smoker Do You Dip or Chew Tobacco: No alcohol intake frequency: holidays/special occasions only Hx Substance Use: No Physical Exam Vital Signs Last Vital Signs Temp 36.9 C 06/25/19 12:52 Pulse 75 06/25/19 12:52 Resp 20 06/25/19 12:52 BP 122/71 06/25/19 12:52 Pulse Ox 94 06/25/19 12:52 Testing Laboratory Results 06/24/19 07:03 06/24/19 07:03 Hemoglobin A1c 7.6 % (4.5-5.6) H 06/24/19 07:03 06/25/19 06/25/19 12:09 05:52 POC Glucose 108 H 117 H
[2019-06-25] MEDS: GENTAMICIN SULFATE 160 MG in DEXTROSE 5% 100 ML IV SCH ×2 (13:28→14:41)
[2019-06-25] MEDS ORDERED: MIDAZOLAM HCL 1 MG/ML 2ML VIAL ONE (14:34)
[2019-06-25] MEDS ORDERED: fentaNYL citrate 100 MCG/2 ML VIAL ONE (14:35)
[2019-06-25] MEDS ORDERED: LIDOCAINE HCL 2% 2 ML VIAL/AMP(20MG/ML) INFIL ONE (14:50)
[2019-06-25] MEDS ORDERED: PROPOFOL IV EMULSION 10 MG/ML 20 ML VIAL IV ONE (14:50)
[2019-06-25] MEDS ORDERED: ONDANSETRON INJ 2 MG/ML 2 ML VIAL ONE (14:50)
--- NOTE | 2019-06-25 15:18 | Operative Report ---
Post Operative Report Pre & Post Diagnosis Prostate Cancer Same Operation Date: 06/25/19 14:30 <No data on this case meets the specified criteria> Procedure Transrectal ultrasound with prostate needle biopsy. Operation Date: 06/25/19 14:30 <No data on this case meets the specified criteria> Surgeon Klaus Hill, II, DO Gear Setter None Estimated Blood Loss 1 Findings Consistent with Post-Op Diagnosis Hard left prostate with nodule. Large prostate. Specimens 2 x biopsy of Right and Left Base, Mid, Lateral, and apex 1 x biospy of left nodule. Drains None Anesthesia Type MAC Complications none Disposition Disposition: Recovery Room Indications Patient with elevated PSA and concern for metastatic disease. Risks and benefits discussed. Description of Procedure Patient was consented and brought back to the operating room. Patient was placed under anesthesia in the supine position and moved to the dorsal lithotomy position. Patient was prepped and draped in the regular sterile fashion. A time out was completed. A betadine rectal douche was completed. The prostate was examined. The left prostate was hard and enlarged with nodules. The transrectal probe was placed and the prostate assessed. The biopsy gun was utilized to take the biopsy of the lateral edges of the prostate with a total of 16 biopsy completed (2 biopsy from left and right Base, [place], Mid, and lateral). The probe was removed and an exam under anesthesia was completed. The nodule on the left was then biopsied directly. These were all sent for analysis. The patient was cleaned, aroused from anesthesia, and transferred to the pacu in stable condition having tolerated the procedure well with no complications. I was present and participated in all aspects of the procedure. The patient will be monitored in the PACU until transferred. I attest to the content of the Intraoperative Record and any orders documented therein. Any exceptions are noted below.
--- NOTE | 2019-06-25 15:32 | Anesthesiology Progress Note ---
Date of Service June 25, 2019 Anesthesia Post Procedure Vital Signs Vital Signs: Temp Pulse Pulse Resp BP BP Pulse Ox 06/25/19 15:22 36.3 C L 76 16 95/66 L 99 06/25/19 12:52 36.9 C 75 20 122/71 94 06/25/19 07:19 36.4 C L 72 18 104/67 94 06/24/19 23:26 36.5 C 81 18 99/66 L 92 Pain Intensity Left Back: Pain Intensity: 4 Transfer of Care Handoff Completed per policy Notes Mental Status: alert / awake / arousable Patient Amnestic to Procedure: Yes Nausea / Vomiting: adequately controlled Pain: adequately controlled Airway Patency, RR, SpO2: stable & adequate BP & HR: stable & adequate Hydration State: stable & adequate Anesthetic Complications: no major complications apparent and Pt Satisfied with anesthetic care
--- NOTE | 2019-06-25 16:23 | Hospitalist Progress Note ---
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 Given the patient's age and gender, prostate cancer is top consideration. A large lesion involving the 3rd rib with surrounding inflam mation related to the patient's history of left-sided chest wall pain. Large osteoblastic lesion T2 vertebral body. There are numerous subcentimeter pulmonary pleural based nodules. pathology is indeterminate and a majority had been present dating back to 2014. -discussed with [facility] affiliated oncologist Dr. 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 Large prostate. specimens were taken 2 x biopsy of Right and Left Base, Mid, Lateral, and apex; 1 x biospy of left nodule. -will monitor patient in hospital for now -continue pain control medications initial elevated blood pressure on this admission likely due to pain blood pressure is controlled Type 2 Diabetes Mellitus without assurance associate current use of insulin -hold home dose metformin and pioglitazone for now -sliding scale insulin as needed Gastroesophageal reflux disease -continue PPI. History of depression, bipolar, anxiety -Continue Cymbalta. Deep venous thrombosis prophylaxis, sequential compression devices. Subjective patient s/p prostate biopsy. able to urinate. no defecation yet. not acute abdomen pain. no groin pain. no shortness of breath. breathing on room air. no lightheadedness. no dizziness Physical Exam Constitutional: WD/WN, vitals as above Eyes: PERRL, conjunctivae normal, anicteric sclerae ENMT: external ear and nose normal, oropharynx normal Neck: trachea midline, no thyromegaly Respiratory: normal respiratory effort, lungs clear to auscultation Cardiovascular: RRR, no murmur, no edema Gastrointestinal (Abdomen): normal bowel sounds, soft, nontender, no hepatosplenomegaly Musculoskeletal: Head/Neck/Chest: normocephalic and head atraumatic Neurologic: PERRL, EOMI, accommodation nl, no face palsy, no dysarthria CN's II-XI intact bilaterally Psychiatric: A+Ox3, euthymic affect Results & Data Vital Signs (Past 12 Hours) Vital Signs Temp Pulse Pulse Resp BP BP Pulse Ox 06/25/19 15:55 36.5 C 74 20 101/65 92 06/25/19 15:40 77 16 102/64 94 06/25/19 15:30 79 15 95/67 L 95 06/25/19 15:22 36.3 C L 76 16 95/66 L 99 06/25/19 12:52 36.9 C 75 20 122/71 94 06/25/19 07:19 36.4 C L 72 18 104/67 94 (1) Fracture of rib Encounter type: initial encounter Fracture type: closed Laterality: left Rib fracture type: single rib Qualified Code(s): S22.32XA - Fracture of one rib, left side, initial encounter for closed fracture
[2019-06-25] MEDS: OXYCODONE/ACETAMINOPHEN 5mg/325mg TAB PO PRN (18:40)
[2019-06-26 07:27] LABS: Hematocrit (blood only) 42.9 % (42-52); Hemoglobin 14.7 g/dL (14.0-18.0); Mean Corpuscular Hgb Conc 34.3 g/dL (32-36); Mean Corpuscular Volume 92.7 fL (80-100); RDW Coefficient of Variation 13.6 % (11.5-14.5); RDW Standard Deviation 46.1 fL (36.4-46.3); Red Blood Count 4.63 M/uL (4.7-6.1); White Blood Count 8.36 K/uL (4.8-10.8)
[2019-06-26 08:05] LABS: Basophils # (auto) 0.02 K/uL (0-0.2); Basophils % (auto) 0.2 %; Eosinophils # (auto) 0.12 K/uL (0-0.5); Eosinophils % (auto) 1.4 %; Immature Granulocytes # (auto) 0.02 K/uL (0.00-0.02); Immature Granulocytes % (auto) 0.2 %; Lymphocytes # (auto) 1.63 K/uL (1.2-3.4); Lymphocytes % (auto) 19.5 %; Monocytes # (auto) 0.76 K/uL (0.11-0.59); Monocytes % (auto) 9.1 %; Neutrophils # (auto) 5.81 K/uL (1.4-6.5); Neutrophils % (auto) 69.6 %; Platelet Estimate Normal (Normal)
[2019-06-26 08:09] LABS: BUN Creatinine Ratio 9.3 (10-20); Calcium 8.2 mg/dl (8.5-10.1); Creatinine Clr Calc Pharmacy 57.7 ml/min; Est GFR (African American) 65.7; Est GFR (Non-African American) 56.7
--- NOTE | 2019-06-26 08:33 | Urology Progress Note ---
Date of Service June 26, 2019 Assessment & Plan (1) Elevated PSA, greater than or equal to 20 ng/ml: 74yo M with elevated PSA, concern for malignancy. POD #1 s/p transrectal biopsy of prostate under sedation. Pt is recovering well. Urinary hesitancy is unchanged from his baseline. We briefly discussed adding tamsulosin for his symtoms, he is uninterested in adding more medications at this time. Ex- expresses many concerns regarding follow up plan. I reassured her the best I could. She understands followup will be determined based upon biopsy results. S/S to watch for s/p biopsy added to discharge instruction. Followup with Dr. Hill scheduled for 07/09 at 9:30AM at [address] Okay to discharge home with Ciprofloxacin 500mg x3 additional days, pain control. Thank you for allowing us to participate in the acute care of Mr. Kelley. Subjective 74yo M with elevated PSA, back pain. Concern for malignancy with prostatic origin. Pt tolerated procedure well. He denies any pain or rectal bleeding. He does acknowledge some urinary hesitancy, states this is no different than his normal. Afebrile overnight, VSS Able to sit up for breakfast. Denies n/v/f/c. Ex- at bedside, she is very concerned over followup plan and details moving forward. Many questions. Review of Systems Review of Systems: All systems reviewed & are unremarkable except as noted in HPI & below Physical Exam Constitutional: no acute distress and not ill appearing Eyes: no nystagmus ENMT: Ears: no hearing impairment Neck: trachea midline Respiratory: no respiratory distress and no cough Cardiovascular: Vessels: no JVD Chest (Breasts): Chest: normal inspection of chest Gastrointestinal (Abdomen): Inspection/Auscultation: abdomen not distended and no abdominal edema Percussion/Palpation: abdomen soft; abdomen nontender Musculoskeletal: Head/Neck/Chest: normocephalic and head atraumatic Skin: no rashes, warm and dry Neurologic: awake; not confused and not obtunded Psychiatric: Orientation: alert and oriented x 3 Eye Contact: good eye contact Affect: no depressed affect Genitourinary: bladder normal to inspection; no CVA tenderness Lymphatic: no lymphadenopathy and no lymphedema Results & Data Vital Signs (Past 12 Hours) Vital Signs Temp Pulse Pulse Resp BP Pulse Ox 06/26/19 07:57 36.7 C 84 20 102/64 95 06/26/19 03:05 36.9 C 84 18 100/65 93 06/25/19 23:20 36.9 C 95 H 16 97/61 L 92 Laboratory Results Laboratory Results - last 48 hr 06/24/19 06/24/19 06/24/19 07:03 07:03 19:58 WBC RBC Hgb Hct MCV MCH MCHC RDW Std Deviation RDW Coeff of Brooke Plt Count Immature Gran % (Auto) Neut % (Auto) Lymph % (Auto) [place] % (Auto) Eos % (Auto) Baso % (Auto) Immature Gran # (Auto) Neut # (Auto) Lymph # (Auto) [place] # (Auto) Eos # (Auto) Baso # (Auto) Platelet Estimate Sodium Potassium Chloride Carbon Dioxide Anion Gap BUN Creatinine Est Cr Clr Drug Dosing Est GFR ( Amer) Est GFR (Non-Af Amer) BUN/Creatinine Ratio Glucose POC Glucose 161 H Calcium Carcinoembryonic Ag 1.7 Pancreatic Fluid CEA Cancelled 06/25/19 06/25/19 06/25/19 05:52 12:09 15:24 WBC RBC Hgb Hct MCV MCH MCHC RDW Std Deviation RDW Coeff of Brooke Plt Count Immature Gran % (Auto) Neut % (Auto) Lymph % (Auto) [place] % (Auto) Eos % (Auto) Baso % (Auto) Immature Gran # (Auto) Neut # (Auto) Lymph # (Auto) [place] # (Auto) Eos # (Auto) Baso # (Auto) Platelet Estimate Sodium Potassium Chloride Carbon Dioxide Anion Gap BUN Creatinine Est Cr Clr Drug Dosing Est GFR ( Amer) Est GFR (Non-Af Amer) BUN/Creatinine Ratio Glucose POC Glucose 117 H 108 H 116 H Calcium Carcinoembryonic Ag Pancreatic Fluid CEA 06/25/19 06/25/19 06/26/19 17:12 20:26 07:05 WBC 8.36 RBC 4.63 L Hgb 14.7 Hct 42.9 MCV 92.7 MCH 31.7 MCHC 34.3 RDW Std Deviation 46.1 RDW Coeff of Brooke 13.6 Plt Count Immature Gran % (Auto) 0.2 Neut % (Auto) 69.6 Lymph % (Auto) 19.5 [place] % (Auto) 9.1 Eos % (Auto) 1.4 Baso % (Auto) 0.2 Immature Gran # (Auto) 0.02 Neut # (Auto) 5.81 Lymph # (Auto) 1.63 [place] # (Auto) 0.76 H Eos # (Auto) 0.12 Baso # (Auto) 0.02 Platelet Estimate Normal Sodium Potassium Chloride Carbon Dioxide Anion Gap BUN Creatinine Est Cr Clr Drug Dosing Est GFR ( Amer) Est GFR (Non-Af Amer) BUN/Creatinine Ratio Glucose POC Glucose 208 H 158 H Calcium Carcinoembryonic Ag Pancreatic Fluid CEA 06/26/19 06/26/19 06/26/19 07:05 08:06 08:18 WBC RBC Hgb Hct MCV MCH MCHC RDW Std Deviation RDW Coeff of Brooke Plt Count Immature Gran % (Auto) Neut % (Auto) Lymph % (Auto) [place] % (Auto) Eos % (Auto) Baso % (Auto) Immature Gran # (Auto) Neut # (Auto) Lymph # (Auto) [place] # (Auto) Eos # (Auto) Baso # (Auto) Platelet Estimate Sodium 138 Potassium 4.2 Chloride 103 Carbon Dioxide 30 Anion Gap 4.0 BUN 11 Creatinine 1.23 Est Cr Clr Drug Dosing 57.7 Est GFR ( Amer) 65.7 Est GFR (Non-Af Amer) 56.7 BUN/Creatinine Ratio 9.3 L Glucose 202 H POC Glucose 184 H Calcium 8.2 L Carcinoembryonic Ag Pancreatic Fluid CEA
[2019-06-26] MEDS: ASPIRIN 81 MG ECTAB PO SCH (10:21)
[2019-06-26] MEDS: ROSUVASTATIN CALCIUM 20 MG TAB PO SCH (10:22)
[2019-06-26] MEDS: DULOXETINE HCL 30 MG CAP PO SCH (10:22)
[2019-06-26] MEDS: PANTOprazole 40 MG TAB PO SCH (10:22)
[2019-06-26] MEDS: BACLOFEN 10 MG TAB PO SCH (10:23)
--- NOTE | 2019-06-26 11:49 | Hospitalist Progress Note ---
Date of Service June 26, 2019 Assessment & Plan (1) Lesion of vertebra: (2) Fracture of rib: This is a 74 year old Male with back pain and found to have multiple osteoblastic lesions Back pain (acute left sided thoracic back pain), Elevated PSA, greater than or equal to 20 ng/ml (PSA 28.4), Multiple osteoblastic lesions (A large lesion involving the 3rd rib with surrounding inflammation related to the patient's history of left-sided chest wall pain. 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 Given the patient's age and gender, prostate cancer is top consideration. A large lesion involving the 3rd rib with surrounding inflammation related to the patient's history of left-sided chest wall pain. Large osteoblastic lesion T2 vertebral body. There are numerous subcentimeter pulmonary pleural based nodules. pathology is indeterminate and a majority had been present dating back to 2014. -discussed with [facility] affiliated oncologist Dr. 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 Large prostate. specimens were taken 2 x biopsy of Right and Left Base, Mid, Lateral, and apex; 1 x biospy of left nodule. -Follow up with primary care doctor and [facility] team for prostate biopsy results -06/26/19 discharge instructions: Patient to follow up 06/30/2019 11:00 AM Provider Demian Hale III, MD Department [facility] and 07/09/19 Dr. Hill at [address] [place] [address] will follow up prostate biopy results and CA 19-9 (has normal CEA) Instructions from your Urology Team: You can go back to your normal activities. You may have some blood in your urine or stool that day. This is normal. You may also notice blood in your semen for weeks after the biopsy. This is normal and not dangerous. Your healthcare provider can tell you more about what to expect. When to call [facility] U[facility] at [phone]: Bloody diarrhea Blood in the urine or stool that doesnt go away after 48 hours Chest pain or trouble breathing (call 911) Chills Fever of 101F Inability to urinate Patient should take ciprofloxacin 500 mg twice a day for 3 more days as per urology Patient may take acetaminophen every 6 hours as needed if fever or mild pain Patient may take Percocet every 6 hours as needed for moderate to severe pain Patient may take sennokot while on Percocet pain medications to prevent constipation prescriptions sent to [facility] [address] [facility] , [place] [address] initial elevated blood pressure on this admission likely due to pain blood pressure is controlled Type 2 Diabetes Mellitus without shelter current use of insulin -was on sliding scale insulin when inpatient -patient may resume home dose diabetes medications as outpatient Gastroesophageal reflux disease -continue PPI. History of depression, bipolar, anxiety -Continue Cymbalta. Deep venous thrombosis prophylaxis, sequential compression devices. Discharge Diagnosis Back pain (acute left sided thoracic back pain), Elevated PSA, greater than or equal to 20 ng/ml (PSA 28.4), Multiple osteoblastic lesions (A large lesion involving the 3rd rib with surrounding inflammation related to the patient's history of left-sided chest wall pain. 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 to bone, s/p prostate biopsy Subjective Patient was seen and examined. able to make bowel movement. denies blood in the stool. no abdomen pain. breathing on room air. no acute shortness of breath. is ambulatory. discharge plans discussed at length Physical Exam Constitutional: WD/WN, vitals as above Eyes: PERRL, conjunctivae normal, anicteric sclerae ENMT: external ear and nose normal, oropharynx normal Neck: trachea midline, no thyromegaly Respiratory: normal respiratory effort, lungs clear to auscultation Cardiovascular: RRR, no murmur, no edema Gastrointestinal (Abdomen): normal bowel sounds, soft, nontender, no hepatosplenomegaly Musculoskeletal: Head/Neck/Chest: normocephalic and head atraumatic Neurologic: PERRL, EOMI, accommodation nl, no face palsy, no dysarthria CN's II-XI intact bilaterally Psychiatric: A+Ox3, euthymic affect Results & Data Vital Signs (Past 12 Hours) Vital Signs Temp Pulse Pulse Resp BP Pulse Ox 06/26/19 07:57 36.7 C 84 20 102/64 95 06/26/19 03:05 36.9 C 84 18 100/65 93 (1) Fracture of rib Encounter type: initial encounter Fracture type: closed Laterality: left Rib fracture type: single rib Qualified Code(s): S22.32XA - Fracture of one rib, left side, initial encounter for closed fracture
[2019-06-26] MEDS: INSULIN ASPART 100 UNITS/ML 3 ML PEN SC SCH (11:51)
--- NOTE | 2019-06-26 11:54 | Discharge Summary ---
Date of Service June 26, 2019 Admission HPI Per Admitting Provider DATE OF ADMISSION: 06/24/2019 CHIEF COMPLAINT: Pain in the back, radiating to the back of left arm. HISTORY OF PRESENT ILLNESS: This is a 74-year-old male with past medical history significant for diabetes type 2, hyperlipidemia, hypertension, GERD, arthritis, factor V Leiden mutation, psoriasis, history of anxiety, bipolar, history of COPD, who comes because of ongoing back pain on the left side of his back and also radiating to the left arm on the back side for the last 10 days. It has been very severe. He is not able to sleep. So he came to the ER. The pain medications has improved the pain. Currently resting comfortably and hemodynamically stable. Denies any headache. No blurred visions. He is somewhat dizzy, but no earache, no runny nose, no sore throat, no difficulty swallowing. Appetite has been down the last few days. No night sweats. Pain in the left side of his chest, it is more when he coughs or takes deep breath. No nausea, no vomiting, no abdominal pain. Normal bowel and bladder movements. He alternates with constipation and diarrhea. No blood in the stools, no black stools, no hematuria, no burning micturition, no swelling in the legs, no rash seen. ALLERGIES: IODINATED DIAGNOSTIC AGENTS, CATS, PENICILLIN. PAST MEDICAL HISTORY: As mentioned above. PAST SURGICAL HISTORY: Colonoscopy, EGDs, reconstruction of the left hand. MEDICATIONS: The patient is on Zantac 300 mg p.o. at bedtime, Crestor 20 mg p.o. daily, metformin XR 500 mg p.o. t.i.d., Jardiance 10 mg p.o. daily, Protonix 40 mg p.o. daily, baclofen 10 mg p.o. t.i.d., Cymbalta 30 mg p.o. daily, albuterol 2 puffs p.r.n., Actos 15 mg p.o. daily, glucosamine 500 mg p.o. daily, aspirin 81 mg p.o. daily. FAMILY HISTORY: Significant for father had prostate cancer at age of 79 and also diabetes. Mother had cancer at age of 61. Aunt has diabetes. SOCIAL HISTORY: Former smoker, quit in 2005, smoked half pack a day. Alcohol rare. No drug use. REVIEW OF SYMPTOMS: As per HPI. Rest of review of systems negative. Admission Exam Per Admitting Provider PHYSICAL EXAMINATION: GENERAL: The patient is of moderate build, not in acute distress. VITAL SIGNS: Temperature 36.9, pulse 78, respiratory rate 20, blood pressure 125/90, oxygen 94% on room air. HEENT: No pallor, no icterus. Pupils equal, round, reactive to light. NECK: No JVD, no neck masses, no carotid bruits. CARDIOVASCULAR: S1, S2 heard, regular rate and rhythm, no murmur, no gallop. RESPIRATORY SYSTEM: Normal AP diameter. No accessory muscle use. No wheezing, no crackles. ABDOMEN: Soft, bowel sounds present, nontender. No distention. CENTRAL NERVOUS SYSTEM: Nonfocal. MUSCULOSKELETAL: No spinal tenderness seen. Normal range of motion of extremities. Principal Diagnosis Back pain (acute left sided thoracic back pain), Elevated PSA, greater than or equal to 20 ng/ml (PSA 28.4), Multiple osteoblastic lesions (A large lesion involving the 3rd rib with surrounding inflammation related to the patient's history of left-sided chest wall pain. 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 to bone, s/p prostate biopsy Discharge Exam Constitutional WD/WN, vitals as above Eyes PERRL, conjunctivae normal, anicteric sclerae ENMT external ear and nose normal, oropharynx normal Neck trachea midline, no thyromegaly Respiratory normal respiratory effort, lungs clear to auscultation Cardiovascular RRR, no murmur, no edema Gastrointestinal (Abdomen) normal bowel sounds, soft, nontender, no hepatosplenomegaly Musculoskeletal Head/Neck/Chest: normocephalic and head atraumatic Neurologic PERRL, EOMI, accommodation nl, no face palsy, no dysarthria CN's II-XI intact bilaterally Psychiatric A+Ox3, euthymic affect Discharge Data Allergies Allergy/AdvReac Type Severity Reaction Status Date / Time cat dander Allergy Intermediate ITCHING , Unverified 06/23/19 22:53 SNEEZING Iodinated Contrast- Oral and Allergy Unknown Unknown Verified 06/23/19 22:53 IV Dye Penicillins Allergy Unknown Unknown Verified 06/23/19 22:53 Consultations 06/23/19 22:28 ED Decision to Admit Stat 06/24/19 01:45 Consult Case Management - Discharge Planning Routine 06/24/19 12:09 Consult Urology Routine 06/24/19 16:07 Consult Oncology Routine 06/26/19 10:44 Burn CD for patient Routine Procedures Performed Operation Date: 06/25/19 14:30 Actual Procedures p Prostate Biopsy under Sedation(Not Applicable) - Klaus Hill II, DO Ordered Studies 06/23/19 20:51 CT chest wo con Stat 06/23/19 20:53 CT thoracic spine wo con Stat 06/24/19 01:45 CT abd pelvis wo con Urgent CT head/brain wo con Urgent Hospital Course (1) Lesion of vertebra: (2) Fracture of rib: This is a 74 year old Male with back pain and found to have multiple osteoblastic lesions Back pain (acute left sided thoracic back pain), Elevated PSA, greater than or equal to 20 ng/ml (PSA 28.4), Multiple osteoblastic lesions (A large lesion involving the 3rd rib with surrounding inflammation related to the patient's history of left-sided chest wall pain. 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 Given the patient's age and gender, prostate cancer is top consideration. A large lesion involving the 3rd rib with surrounding inflamm ation related to the patient's history of left-sided chest wall pain. Large osteoblastic lesion T2 vertebral body. There are numerous subcentimeter pulmonary pleural based nodules. pathology is indeterminate and a majority had been present dating back to 2014. -discussed with [facility] affiliated oncologist Dr. Jeffry Quach and he advises prostate biopsy given elevated PSA as patient may have metastatic bone cancer with origin from prostate -patient was seen by [facility] and has prostate biopsy on 06/25/19; Hard left prostate with nodule. Large prostate. specimens were taken 2 x biopsy of Right and Left Base, Mid, Lateral, and apex; 1 x biospy of left nodule. -Follow up with primary care doctor and [facility] Urology team for prostate biopsy results -06/26/19 discharge instructions: Patient to follow up 06/30/2019 11:00 AM Provider Demian Hale III, MD Department [facility] and 07/09/19 Dr. Hill at [address] [facility] will follow up prostate biopy results and CA 19-9 (has normal CEA) Instructions from your Urology Team: You can go back to your normal activities. You may have some blood in your urine or stool that day. This is normal. You may also notice blood in your semen for weeks after the biopsy. This is normal and not dangerous. Your healthcare provider can tell you more about what to expect. When to call [facility] at [phone]: Bloody diarrhea Blood in the urine or stool that doesnt go away after 48 hours Chest pain or trouble breathing (call 911) Chills Fever of 101F Inability to urinate Patient should take ciprofloxacin 500 mg twice a day for 3 more days as per urology Patient may take acetaminophen every 6 hours as needed if fever or mild pain Patient may take Percocet every 6 hours as needed for moderate to severe pain Patient may take sennokot while on Percocet pain medications to prevent constipation prescriptions sent to [facility] [address] [facility] , [place] [address] initial elevated blood pressure on this admission likely due to pain blood pressure is controlled Type 2 Diabetes Mellitus without ocean transportation intermediary current use of insulin -was on sliding scale insulin when inpatient -patient may resume home dose diabetes medications as outpatient Gastroesophageal reflux disease -continue PPI. History of depression, bipolar, anxiety -Continue Cymbalta. Deep venous thrombosis prophylaxis, sequential compression devices. Discharge Diagnosis Back pain (acute left sided thoracic back pain), Elevated PSA, greater than or equal to 20 ng/ml (PSA 28.4), Multiple osteoblastic lesions (A large lesion involving the 3rd rib with surrounding inflammation related to the patient's history of left-sided chest wall pain. 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 to bone, s/p prostate biopsy Total Time Total Time Spent Total Time Spent (In Minutes): 40 minutes Total Time Includes: Examination of the Patient, Discharge Planning, Medication Reconciliation and Communication With Other Providers Discharge Plan Discharge Items Patient Disposition: Home - Self-Care Reason For Visit: BACK PAIN AND LEFT ARM PAIN Discharge Diagnosis: Back pain (acute left sided thoracic back pain), Elevated PSA, greater than or equal to 20 ng/ml (PSA 28.4), Multiple osteoblastic lesions (A large lesion involving the 3rd rib with surrounding inflammation related to the patient's history of left-sided chest wall pain. 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 to bone, s/p prostate biopsy Condition: Good Discharge Goals: Diagnostic testing Activity: Resume your previous activity Non-emergency contact: Primary Care Provider and Urologist Call non-emergency contact if: you have any medication questions Follow-up/Referrals: Klaus Hill II, DO [Physician] - 07/09/19 9:30 am Demian Hale MD [Primary Care Provider] - Diet: Regular Addtl Provider Instructions: Follow up with primary care doctor and [facility] Urology team for prostate biopsy results 06/30/2019 11:00 AM Provider Demian Hale III, MD Department [facility] 07/09/19 Dr. Hill at [address] Instructions from your Urology Team: You can go back to your normal activities. You may have some blood in your urine or stool that day. This is normal. You may also notice blood in your semen for weeks after the biopsy. This is normal and not dangerous. Your healthcare provider can tell you more about what to expect. When to call [facility] at [phone]: Bloody diarrhea Blood in the urine or stool that doesnt go away after 48 hours Chest pain or trouble breathing (call 911) Chills Fever of 101F Inability to urinate Patient should take ciprofloxacin 500 mg twice a day for 3 more days as per urology Patient may take acetaminophen every 6 hours as needed if fever or mild pain Patient may take Percocet every 6 hours as needed for moderate to severe pain Patient may take sennokot while on Percocet pain medications to prevent constipation prescriptions sent to [facility] [address] [facility] , [place] [address] Prescriptions: New acetaminophen 325 mg capsule 325 mg PO Q6H PRN (Reason: fever or pain) 5 Days Qty: 20 RF: 0 sennosides [Senokot] 8.6 mg Tablet 8.6 mg PO QAM 10 Days Qty: 10 RF: 0 ciprofloxacin HCl 500 mg Tablet 500 mg PO BID 3 Days Qty: 6 RF: 0 oxycodone-acetaminophen [Percocet] 5-325 mg Tablet 1 tab PO Q6H PRN (Reason: moderate to severe pain) 4 Days Qty: 16 RF: 0 Continued pioglitazone [Actos] 15 mg tablet 15 mg PO DAILY RF: 0 ranitidine HCl [Zantac] 300 mg tablet 300 mg PO HS RF: 0 aspirin [Aspir-Low] 81 mg Tablet,Delayed Release (Dr/Ec) 81 mg PO DAILY RF: 0 baclofen 10 mg tablet 10 mg PO TID RF: 0 pantoprazole [Protonix] 40 mg tablet,delayed release (DR/EC) 40 mg PO DAILY RF: 0 hydrocortisone 2.5 % Cream 1 applic TOPICAL BID PRN (Reason: FOREHEAD & EBLOWS) RF: 0 metformin [Glucophage XR] 500 mg tablet extended release 24 hr 500 mg PO TID RF: 0 glucosamine-chondroitin 250-200 mg Tablet 1 tab PO BID RF: 0 rosuvastatin [Crestor] 20 mg tablet 20 mg PO DAILY RF: 0 duloxetine [Cymbalta] 30 mg capsule,delayed release(DR/EC) 30 mg PO DAILY RF: 0 Jardiance 10 mg tablet 10 mg PO DAILY RF: 0 Stand-Alone Forms: Call Back Authorization, [facility] Discharge Orders: Discharge Order (Routine); Ordered 06/26/19 Ordered By: Macario Moore Admission Data Admit Date/Time: 06/24/19 00:38 Attending Provider: Macario Moore Admit Provider: Aiden León Primary Care Provider: Demian Hale Other Providers: Aiden León ; Klaus Hill II ; Jeffry Quach Service: Medical Other Pending Studies at Discharge: Yes Studies:: prostate biopsy, CA 19-9
--- NOTE | 2019-06-26 12:31 | Anesthesiology Progress Note ---
Date of Service June 26, 2019 Anesthesia Post Procedure Vital Signs Vital Signs: Temp Pulse Pulse Resp BP BP Pulse Ox 06/26/19 11:53 36.7 C 84 84 20 102/64 95 06/26/19 07:57 36.7 C 84 20 102/64 95 06/26/19 03:05 36.9 C 84 18 100/65 93 06/25/19 23:20 36.9 C 95 H 16 97/61 L 92 06/25/19 18:52 36.6 C 94 H 18 103/54 L 93 06/25/19 18:07 36.7 C 95 H 17 128/71 92 06/25/19 16:59 36.6 C 93 H 18 122/80 94 06/25/19 15:55 36.5 C 74 20 101/65 92 06/25/19 15:40 77 16 102/64 94 06/25/19 15:30 79 15 95/67 L 95 06/25/19 15:22 36.3 C L 76 16 95/66 L 99 06/25/19 12:52 36.9 C 75 20 122/71 94 Pain Intensity Left Back: Pain Intensity: 4 Transfer of Care Handoff Completed per policy Notes Mental Status: alert / awake / arousable Patient Amnestic to Procedure: Yes Nausea / Vomiting: adequately controlled Pain: adequately controlled Airway Patency, RR, SpO2: stable & adequate BP & HR: stable & adequate Hydration State: stable & adequate Anesthetic Complications: no major complications apparent and Pt Satisfied with anesthetic care
[2019-06-26] MEDS ORDERED: CIPROFLOXACIN 500 MG TAB PO SCH (21:00)
[2019-06-27] MEDS ORDERED: SENNA 8.6 MG TAB PO SCH (09:00)
== END 2019-06-26 13:21 | disposition home or self-care (01) | DRG 723 ==
LOC: ED 20:19 → SUATTDRO 06-24 00:38 → 3N 06-24 00:38